=== PATIENT | male | born 1945 | race Hispanic/Latino ===

== ENCOUNTER 2017-05-19 10:46 | Day surgery (SDC) | payer MEDICARE ==
[2017-05-18 08:23] VITALS: BMI 24.1
[2017-05-19 11:10] LABS: BASO # 0.04 K/mm3 (0.0-2.0); BASO % 0.2 % (0.0-3.0); EOS # 0.2 (0.0-0.7); EOS % 0.9 % (1.5-5.0); GRAN # 13.88 (1.4-6.5); GRAN % 79.8 % (50.0-68.0); HEMOGLOBIN 13.3 g/dL (14.0-18.0); LYMPH # 2.4 (1.2-3.4); LYMPH % 13.8 % (22.0-35.0); MEAN CELL VOLUME 97.1 fl (80.0-105.0); MEAN CORPUSCULAR HEMOGLOBIN 32.1 pg (25.0-35.0); MEAN CORPUSCULAR HGB CONC 33.1 g/dl (31.0-37.0); MEAN PLATELET VOLUME 10.5 fl (7.0-11.0); MONO # 0.9 (0.1-0.6); MONO % 5.3 % (1.0-6.0); RBC 4.14 10^6/uL (3.5-6.1); RED CELL DISTRIBUTION WIDTH 13.2 % (11.5-14.5); WHITE BLOOD COUNT 17.4 10^3/ul (4.5-11.0)
[2017-05-19 11:19] LABS: BLOOD UREA NITROGEN 15 mg/dL (7-21); CALCIUM 10.4 mg/dL (8.4-10.5); GFR AFRICAN-AMERICAN > 60; GFR NON-AFRICAN AMERICAN > 60
[2017-05-19 11:28] LABS: INR 1.11 (0.93-1.08); PARTIAL THROMBOPLASTIN TIME 30.9 Seconds (25.1-36.5); PROTHROMBIN TIME 12.8 SECONDS (9.4-12.5)
[2017-05-19] MEDS ORDERED: Midazolam 2 MG/2 ML VIAL ONE (14:03)
[2017-05-19] MEDS ORDERED: Lidocaine 1% Inj (20ml) ONE (14:51)
[2017-05-19] MEDS ORDERED: Oxycodone/Acetaminophen 5/325 mg Tab PO PRN (15:10)
[2017-05-19] MEDS ORDERED: Sodium Chloride 0.45% 1,000 ML IV SCH (15:15)
[2017-05-19 16:29] VITALS: BP 128/73; PULSE 76; RESP 20; TEMP 98.4; O2SAT 96
--- NOTE | 2017-05-19 16:57 | RAD ---
HISTORY: rt lung bx COMPARISON: CT same day FINDINGS: LUNGS: Right lower lobe mass and effusion. No evidence of pneumothorax PLEURA: No significant pleural effusion identified, no pneumothorax apparent. CARDIOVASCULAR: Normal. OSSEOUS STRUCTURES: No significant abnormalities. VISUALIZED UPPER ABDOMEN: Normal. OTHER FINDINGS: None. IMPRESSION: No evidence of post biopsy pneumothorax on the right
--- NOTE | 2017-05-19 19:41 | CT ---
PROCEDURE: CT guided right lower lobe chest biopsy. HISTORY: Lung CA. Third biopsy. Needs tumor markers. PHYSICIAN(S): Natan Collier MD. TECHNIQUE: The relative risks and indications of the procedure were explained to the patient and consent obtained. The patient was placed prone on the CT scanner and preliminary images through the mid lungs obtained. Conscious sedation and monitoring were provided throughout the procedure by a nurse. There is a destructive 4 x 7 cm right lower lobe lung mass involving the chest wall posteriorly. A right posterior oblique approach was selected and the area prepped and draped in the usual sterile fashion. 1% Xylocaine was used to anesthetize the skin and soft tissues. A 17-gauge guiding needle was advanced into the 4 x 7 cm chest wall mass. Its position was confirmed with CT. Using coaxial technique, multiple core biopsies were obtained. The postprocedure images show no evidence of pneumothorax or significant hemorrhage.. IMPRESSION: 1. CT-guided right chest biopsy as described above. PD L-1 markers were sent
== END 2017-05-19 17:40 | disposition home or self-care (01) ==
LOC: SDS 10:46
PROVIDERS: ATTEND Radiology Vascular & Interventional Radiology
DX: C34.31 Malignant neoplasm of lower lobe, right bronchus or lung (principal); I25.10 Atherosclerotic heart disease of native coronary artery without angina pectoris; E11.9 Type 2 diabetes mellitus without complications
CPT/HCPCS: 32405; 36415; 71045; 77012; 80048; 85025; 85610; 85730; 88305; J2250; J2405; J3010; J7030

== ENCOUNTER 2017-07-01 13:46 | Day surgery (SDC) | payer MEDICARE ==
[2017-07-01 14:24] VITALS: RESP 20; O2SAT 94; BMI 24.3
[2017-07-01 14:25] LABS: BASO # 0.02 K/mm3 (0.0-2.0); BASO % 0.1 % (0.0-3.0); EOS # 0.2 (0.0-0.7); EOS % 1.6 % (1.5-5.0); GRAN # 10.26 (1.4-6.5); GRAN % 75.9 % (50.0-68.0); HEMOGLOBIN 11.5 g/dL (14.0-18.0); LYMPH # 1.4 (1.2-3.4); LYMPH % 10.6 % (22.0-35.0); MEAN CELL VOLUME 98.6 fl (80.0-105.0); MEAN CORPUSCULAR HGB CONC 33.5 g/dl (31.0-37.0); MEAN PLATELET VOLUME 10.5 fl (7.0-11.0); MONO # 1.6 (0.1-0.6); MONO % 11.8 % (1.0-6.0); RBC 3.48 10^6/uL (3.5-6.1); RED CELL DISTRIBUTION WIDTH 15.3 % (11.5-14.5); WHITE BLOOD COUNT 13.5 10^3/ul (4.5-11.0)
[2017-07-01 14:35] LABS: BLOOD UREA NITROGEN 23 mg/dL (7-21); GFR AFRICAN-AMERICAN > 60; GFR NON-AFRICAN AMERICAN > 60
[2017-07-01 14:36] LABS: INR 1.09 (0.93-1.08); PARTIAL THROMBOPLASTIN TIME 30.8 Seconds (25.1-36.5); PROTHROMBIN TIME 12.4 SECONDS (9.4-12.5)
[2017-07-01 17:21] VITALS: BP 123/67; PULSE 102; TEMP 98.2
--- NOTE | 2017-07-01 17:34 | US ---
PROCEDURE: Ultrasound guided right thoracentesis. CLINICAL HISTORY: Lung carcinoma. New large right pleural effusion. Shortness of breath. Evaluate for malignancy. PHYSICIAN(S): Natan Collier MD. TECHNIQUE: The relative risks and indications of the procedure were explained to the patient and consent obtained. The patient was placed in a sitting position on the stretcher and sonography of the right chest performed. This revealed a moderate to large rightpleural effusion. A right posterolateral intercostal approach was selected and the area prepped and draped usual sterile fashion. 1% Xylocaine was used to anesthetize the skin and soft tissues. A 7 [place] thoracentesis catheter was trocared into the right pleural cavity and 2400 ccof serosanguineous fluid aspirated. A cytology specimen was sent. IMPRESSION: 1. Ultrasound guided right thoracentesis. 2400 cc of serosanguineousfluid were aspirated. A cytology specimen was sent.
--- NOTE | 2017-07-02 08:13 | RAD ---
HISTORY: rt thoracentesis COMPARISON: 05/19/2017 TECHNIQUE: Chest PA and lateral FINDINGS: LUNGS: No active pulmonary disease. PLEURA: There is layering or loculation of a pleural effusion at the right lung base. No evidence of pneumothorax CARDIOVASCULAR: Normal. OSSEOUS STRUCTURES: No significant abnormalities. VISUALIZED UPPER ABDOMEN: Normal. OTHER FINDINGS: None. IMPRESSION: There is layering or loculation of a pleural effusion at the right lung base. No evidence of pneumothorax
== END 2017-07-01 18:10 | disposition home or self-care (01) ==
LOC: OPSURG 13:46
PROVIDERS: ATTEND Radiology Vascular & Interventional Radiology
DX: C34.90 Malignant neoplasm of unspecified part of unspecified bronchus or lung (principal); J91.0 Malignant pleural effusion

== ENCOUNTER 2018-02-09 13:51 | Day surgery (SDC) | payer MEDICARE ==
[2018-02-09 14:16] VITALS: BMI 26.6
[2018-02-09 14:24] VITALS: BP 128/69; RESP 18; O2SAT 97
[2018-02-09 14:29] LABS: BASO # 0.01 K/mm3 (0.0-2.0); BASO % 0.1 % (0.0-3.0); EOS # 0.2 (0.0-0.7); EOS % 1.9 % (1.5-5.0); GRAN # 6.55 (1.4-6.5); GRAN % 68.8 % (50.0-68.0); HEMOGLOBIN 11.7 g/dL (14.0-18.0); LYMPH # 1.7 (1.2-3.4); LYMPH % 17.5 % (22.0-35.0); MEAN CELL VOLUME 95.6 fl (80.0-105.0); MEAN CORPUSCULAR HGB CONC 33.4 g/dl (31.0-37.0); MEAN PLATELET VOLUME 9.5 fl (7.0-11.0); MONO # 1.1 (0.1-0.6); MONO % 11.7 % (1.0-6.0); RBC 3.66 10^6/uL (3.5-6.1); RED CELL DISTRIBUTION WIDTH 14.6 % (11.5-14.5); WHITE BLOOD COUNT 9.5 10^3/uL (4.5-11.0)
[2018-02-09 14:36] LABS: BLOOD UREA NITROGEN 14 mg/dL (7-21); CALCIUM 9.8 mg/dL (8.4-10.5); GFR NON-AFRICAN AMERICAN > 60
[2018-02-09 14:48] LABS: INR 1.15; PARTIAL THROMBOPLASTIN TIME 32.8 Seconds (25.1-36.5); PROTHROMBIN TIME 13.2 SECONDS (9.4-12.5)
[2018-02-09 17:58] VITALS: PULSE 79; TEMP 97.6
--- NOTE | 2018-02-09 18:11 | US ---
PROCEDURE: Ultrasound guided right thoracentesis. CLINICAL HISTORY: Right lung carcinoma. Right pleural effusion with shortness of breath. Needs thoracentesis. PHYSICIAN(S): Natan Collier MD. TECHNIQUE: The relative risks and indications of the procedure were explained to the patient and his and consent obtained. The patient was placed in a sitting position on the stretcher and sonography of the right chest performed. This revealed a small to moderate rightpleural effusion. A right posterolateral intercostal approach was selected and the area prepped and draped usual sterile fashion. 1% Xylocaine was used to anesthetize the skin and soft tissues. A 7 [place] thoracentesis catheter was trocared into the right pleural cavity and 900 ccof serosanguineous fluid aspirated. No labs were sent. IMPRESSION: 1. Ultrasound guided right thoracentesis. 900 cc of serosanguineous fluid were aspirated.
--- NOTE | 2018-02-10 09:52 | RAD ---
Date of service: 02/09/2018 HISTORY: rt thora COMPARISON: 07/01/2017 TECHNIQUE: Chest PA and lateral FINDINGS: LUNGS: No active pulmonary disease. PLEURA: There is a small to moderate right pleural effusion. There is no pneumothorax. There are no recent films for comparison CARDIOVASCULAR: No aortic atherosclerotic calcification present. Normal cardiac size. No pulmonary vascular congestion. OSSEOUS STRUCTURES: No significant abnormalities. VISUALIZED UPPER ABDOMEN: Normal. OTHER FINDINGS: None. IMPRESSION: There is a small to moderate right pleural effusion. There is no pneumothorax. There are no recent films for comparison
== END 2018-02-09 18:30 | disposition home or self-care (01) ==
LOC: OPSURG 13:51 → SDS 13:51 → OPSURG 18:30
PROVIDERS: ATTEND Radiology Vascular & Interventional Radiology
DX: J91.8 Pleural effusion in other conditions classified elsewhere (principal); C34.91 Malignant neoplasm of unspecified part of right bronchus or lung; J90 Pleural effusion, not elsewhere classified

== ENCOUNTER 2018-07-14 11:48 | Day surgery (SDC) | payer MEDICARE ==
[2018-07-14 12:20] LABS: BASO # 0.05 K/mm3 (0.0-2.0); BASO % 0.6 % (0.0-3.0); EOS # 0.2 (0.0-0.7); EOS % 2.6 % (1.5-5.0); HEMOGLOBIN 10.9 g/dL (14.0-18.0); LYMPH # 1.5 (1.2-3.4); LYMPH % 18.2 % (22.0-35.0); MEAN CELL VOLUME 98.9 fl (80.0-105.0); MEAN CORPUSCULAR HEMOGLOBIN 30.7 pg (25.0-35.0); MEAN CORPUSCULAR HGB CONC 31.1 g/dl (31.0-37.0); MEAN PLATELET VOLUME 9.4 fl (7.0-11.0); MONO # 0.6 (0.1-0.6); MONO % 7.2 % (1.0-6.0); RBC 3.55 10^6/uL (3.5-6.1); RED CELL DISTRIBUTION WIDTH 15.3 % (11.5-14.5); WHITE BLOOD COUNT 8.4 10^3/uL (4.5-11.0)
[2018-07-14 12:31] VITALS: O2SAT 95
[2018-07-14 12:33] LABS: BLOOD UREA NITROGEN 20 mg/dL (7-21); CALCIUM 9.6 mg/dL (8.4-10.5); GFR NON-AFRICAN AMERICAN > 60
[2018-07-14 12:35] LABS: INR 1.12; PARTIAL THROMBOPLASTIN TIME 32.7 Seconds (26.9-38.3); PROTHROMBIN TIME 12.7 SECONDS (9.4-12.5)
[2018-07-14] MEDS ORDERED: Oxycodone/Acetaminophen 5/325 mg Tab PO PRN (13:02)
--- NOTE | 2018-07-14 13:20 | RAD ---
Date of service: 07/14/2018 HISTORY: rt thora. Lung CA COMPARISON: No prior. TECHNIQUE: Chest PA and lateral views FINDINGS: LUNGS: No active pulmonary disease. PLEURA: There is a loculated effusion along the right lateral chest wall and the right minor fissure. There is no pneumothorax CARDIOVASCULAR: Aortic calcification Normal cardiac size. No pulmonary vascular congestion. OSSEOUS STRUCTURES: No significant abnormalities. VISUALIZED UPPER ABDOMEN: Normal. OTHER FINDINGS: None. IMPRESSION: There is a loculated effusion along the right lateral chest wall and the right minor fissure. There is no pneumothorax
[2018-07-14 13:23] VITALS: BP 127/71; PULSE 80; RESP 20; TEMP 97.7
--- NOTE | 2018-07-14 14:34 | US ---
PROCEDURE: Ultrasound guided right thoracentesis. CLINICAL HISTORY: Right lung cancer. Malignant right pleural effusion. Shortness of breath. Needs therapeutic thoracentesis PHYSICIAN(S): Natan Collier MD. TECHNIQUE: The relative risks and indications of the procedure were explained to the patient and consent obtained. The patient was placed in a sitting position on the stretcher and sonography of the right chest performed. This revealed a complex small to moderate rightpleural effusion. A right posterolateral intercostal approach was selected and the area prepped and draped usual sterile fashion. 1% Xylocaine was used to anesthetize the skin and soft tissues. A 7 [place] thoracentesis catheter was trocared into the right pleural cavity and 700 cc of serosanguineous then bloody fluid aspirated. No labs were sent IMPRESSION: 1. Ultrasound guided right thoracentesis. 700 cc of serosanguineous then bloody fluid was aspirated. 2. The postprocedure chest x-ray demonstrated a 3 cm hydropneumothorax in the right costophrenic margin. The patient was stable and asymptomatic. Follow-up chest x-ray is recommended
== END 2018-07-14 14:54 | disposition home or self-care (01) ==
LOC: OPSURG 11:48
PROVIDERS: ATTEND Radiology Vascular & Interventional Radiology
DX: C34.91 Malignant neoplasm of unspecified part of right bronchus or lung (principal); J91.0 Malignant pleural effusion